=== PATIENT | male | born 1995 | race African-American/Black ===

== ENCOUNTER 2023-07-27 10:13 | Emergency (ER) | payer MEDICAID ==
[~2023-07-27] VITALS: Ht 175.3 cm; Wt 81.6 kg
[2023-07-27 10:18] VITALS: O2SAT 96
[2023-07-27] MEDS ORDERED: AMOX1TAB16 MT (11:22)
[2023-07-27] MEDS: LIDOCAINE HCL/PF 1% 10 MG/ML 5ML VIAL INFIL ONE (11:30)
[2023-07-27] MEDS: BACITRACIN ZINC OINT UDPKT TOP ONE (11:30)
[2023-07-27] MEDS: TETANUS, DIPHTHERIA, PERTUSSIS VAC/PF 0.5ML (>10YR OLD) IM ONE (11:30)
[2023-07-27] MEDS ORDERED: MUPI15CR11 TP (12:19)
[2023-07-27 12:43] VITALS: BP 119/80; PULSE 70; RESP 14; TEMP 98.2
== END 2023-07-27 14:22 | disposition home or self-care (01) ==
LOC: ER 12:12
DX: S01.81XA Laceration without foreign body of other part of head, initial encounter (principal); W54.0XXA Bitten by dog, initial encounter; Y93.89 Activity, other specified; Y92.89 Other specified places as the place of occurrence of the external cause; Y99.8 Other external cause status
CPT/HCPCS: 99283; 90715; 12013; 90471; J3490

== ENCOUNTER 2023-07-29 11:15 | Emergency (ER) | payer MEDICAID ==
[~2023-07-29] VITALS: Ht 185.4 cm; Wt 85.0 kg
[~2023-07-29 11:15] MED LIST: AMOX1TAB16 MT; MUPI15CR11 TP
[2023-07-29 11:16] VITALS: PULSE 82
[2023-07-29 11:26] VITALS: BP 130/42; RESP 18; TEMP 98.2; O2SAT 100
== END 2023-07-29 11:35 ==
LOC: ER 11:15
DX: S01.412D Laceration without foreign body of left cheek and temporomandibular area, subsequent encounter (principal); Z48.00 Encounter for change or removal of nonsurgical wound dressing; X58.XXXD Exposure to other specified factors, subsequent encounter
CPT/HCPCS: 99281

== ENCOUNTER 2023-08-02 11:45 | Emergency (ER) | payer SELFPAY ==
[~2023-08-02] VITALS: Ht 172.7 cm; Wt 82.0 kg
[2023-08-02 12:06] VITALS: O2SAT 100
[2023-08-02 12:13] VITALS: BP 127/77; PULSE 70; RESP 18; TEMP 98.3
== END 2023-08-02 12:24 | disposition home or self-care (01) ==
LOC: ER 11:45
DX: S01.81XD Laceration without foreign body of other part of head, subsequent encounter (principal); X58.XXXD Exposure to other specified factors, subsequent encounter
CPT/HCPCS: 99281; Z7610 ×2